=== PATIENT | female | born 1995 | race Caucasian/White ===

== ENCOUNTER 2022-02-10 03:28 | Inpatient (IN) | payer OTHER, MEDICAID, SELFPAY ==
[2022-02-10] VITALS (71 sets, daily range): BP systolic 115–145; BP diastolic 60–103; PULSE 62–245; RESP 14–17; TEMP 36.1–36.8; O2SAT 80–100; BMI 27.8
[2022-02-10 03:57] LABS: Basophils % 0.2 %; Eosinophils # 0.1 10^3/uL (0.0-0.8); Eosinophils % 0.5 %; Hematocrit 32.7 % (37.0-47.0); Hemoglobin 10.6 g/dL (11.5-15.3); Lymphocytes # 3.1 10^3/uL (0.8-4.8); Lymphocytes % 25.6 %; Mean Corpuscular HGB Conc 32.4 g/dL (30.0-36.0); Mean Corpuscular Hemoglobin 27.3 pg (28.0-34.0); Mean Corpuscular Volume 84.3 fl (81-99); Mean Platelet Volume 10.4 fL (7.4-10.4); Monocytes # 0.7 10^3/uL (0.2-0.9); Monocytes % 5.4 %; Neutrophils # 8.18 10^3/uL (1.8-7.7); Neutrophils % 67.9 %; Nucleated Red Blood Cells % 0 %; Platelet Count 239 10^3/cmm (130-400); Red Blood Count 3.88 10^6/uL (4.1-5.3); Red Cell Distribution Width 12.8 % (12.1-15.1)
[2022-02-10] MEDS: lactated ringers 1,000 ML 999 ML IV ×2 (04:09→04:35)
[2022-02-10 04:19] LABS: Amphetamines Screen Urine Negative (Negative); Barbiturates Screen Urine Negative (Negative); Benzodiazepines Screen Urine Negative (Negative); Cocaine Screen Urine Negative (Negative); Opiate Screen Urine Positive (Negative); PCP Screen Urine Negative (Negative); THC Screen Urine Negative (Negative)
--- NOTE | 2022-02-10 05:25 | ANES.PREANE2 ---
Pre-Anesthetic Assessment Height/Weight: Height 1.63 m Weight 73.482 kg Temp Pulse BP Pulse Ox O2 Del Method 97.0 F L 84 141/69 99 02/10/22 02:55 02/10/22 05:21 02/10/22 05:20 02/10/22 05:21 02/10/22 04:00 Preop Diagnosis: expected labor epidural Familial anesthetic complications: None Was Beta Destiney taken within 24 hours: N/A Was Clonidine taken within 24 hours: N/A Last intake: 02/09/22 @2200 Social No alcohol and No tobacco Exam alert, oriented x 3, clear to auscultation bilaterally and regular rate & rhythm Airway Submandibular: within normal limits Cervical ROM: within normal limits Mallampati: Class II History/ROS No significant history except as noted Pulmonary None reported CV/HEM Anemia None reported Hepatic None reported GI None reported Metabolic None reported Musc/skel None reported Neuropsych None reported Anesthetic Plan ASA status: 2 Anesthesia: Anesthesia Evaluation and Regional (specify below) Risk of > 500 ml blood loss (7ml/kg in children): No Medications/Allergies Home Medications Medication Instructions Recorded Confirmed Last Taken Type No Known Home Medications 02/10/22 02/10/22 Unknown History Allergies Allergy/AdvReac Type Severity Reaction Status Date / Time No Known Allergies Allergy Verified 02/10/22 04:41 Current Medications Generic Name Dose Route Start Last Admin Trade Name Freq PRN Reason Stop Dose Admin Lactated Ringer's 1,000 mls @ 999 mls/hr 02/10/22 03:30 02/10/22 04:35 Lactated Ringers IV 999 mls/hr .Q1H1M PRN Administration See label comments PFS Anesthesia Female Reproductive History : 3 Data Anesthesia : 02/10/22 03:43 Short CBC 02/10/22 Range/Units 03:43 WBC 12.0 H (4.0-10.0) 10^3/uL Hgb 10.6 L (11.5-15.3) g/dL Hct 32.7 L (37.0-47.0) % MCV 84.3 (81-99) fl Plt Count 239 (130-400) 10^3/cmm Neut % (Auto) 67.9 % Neut # (Auto) 8.18 H (1.8-7.7) 10^3/uL Cardiac Studies: No Data to Display Anesthesia Procedures Date of Procedure 02/10/22 Epidural Time Out Performed: Yes Consents Signed: Procedure Consent Consent: from patient Lumbar Level: L4-L5 Epidural position: sitting Epidural procedure: sterile prep of area, 1% lidocaine to numb the area, 18 g needle, negative for paresthesia passed, neg for paresthesia, test dose given, 1.5% xylocaine 1:200k epi, placed PCEA, no systemic response, sterile dressing applied, L.U.D. no apparent complications and 0.2% Ropiavacaine @ mls/hr (13)
[2022-02-10] MEDS: oxytocin 30 UNIT/500 ML BAG IV (10:00)
--- NOTE | 2022-02-10 11:37 | PM.OPHPUD ---
Labor & Delivery H&P Update Date of Procedure: February 10, 2022 Date H&P Performed: 02/06/22 Admission Diagnosis: in active labor Preop diagnosis: expected
--- NOTE | 2022-02-10 11:38 | P.PCNOB_ITS ---
Delivery Note: Date of delivery: February 10, 2022 Procedure: Normal spontaneous vaginal delivery Delivering Physician: Alana Lloyd MD Estimated blood loss (mL): 175 Pre-Delivery Course: Mother had routine care at [facility]. She was positive for marijuana on her urine drug screen and is positive again today. Otherwise there were no complications during the . Her infectious disease profile was negative. She was GBS negative. Delivery: This is a 26-year-old G3, now P2 at 39 weeks 5 days gestation who presented to labor and delivery in active labor. She received an epidural for pain management. She had spontaneous rupture of membranes with clear fluid. Rupture of membranes was approximately 5 hours prior to delivery. She had a normal spontaneous vaginal delivery of a viable female infant weight 3025 g, 6 pounds 11 ounces, Apgars 8 and 9 over an intact perineum. The had a nuchal cord x1 that was reduced upon delivery. The was suctioned and placed on the mother's chest. The cord was clamped and cut. The placenta was delivered grossly intact and normal to inspection. There was a first-degree perineal laceration that was sutured using 3-0 chromic. Mother and were doing well after delivery A&P Assessment and plan (1) (normal spontaneous vaginal delivery): Status: Acute Coding Level of Care Code Acute Professor Of Religious Studies for Chg Fwd Diagnoses (normal spontaneous vaginal delivery) O80
[2022-02-10] MEDS: lanolin oint 7 gm 1 APPLIC TOPICAL (12:22)
[2022-02-10] MEDS: acetaminophen 325 mg Tablet 650 MG PO (12:22)
[2022-02-10] MEDS: benzocaine-menthol 78 gm Canister 1 SPRAY TOPICAL (12:22)
[2022-02-10] MEDS: ibuprofen 800 mg tablet PO ×2 (14:24→21:54)
--- NOTE | 2022-02-10 16:32 | ANE.PACU2 ---
Inpatient post-anesthesia follow up: Airway intact: Yes Vital signs: Temperature 97.5 F Pulse Rate 85 Respiratory Rate 17 Blood Pressure 125/67 Pulse Oximetry 99 Oxygen Delivery Me thod Room Air Oxygen Flow Rate Fraction of Inspir ed Oxygen Hydration adequate: Yes Nausea and vomiting: No Pain level: 1 Mental status: Baseline Additional Comments: EMR review
[2022-02-10] MEDS: docusate sodium 100 mg Capsule PO (21:54)
[2022-02-11 03:10] VITALS: BP 113/64; PULSE 76; RESP 14; TEMP 36.7; O2SAT 98
[2022-02-11 03:19] LABS: Hemoglobin 8.9 g/dL (11.5-15.3); Mean Corpuscular HGB Conc 31.8 g/dL (30.0-36.0); Mean Corpuscular Hemoglobin 26.9 pg (28.0-34.0); Mean Corpuscular Volume 84.6 fl (81-99); Mean Platelet Volume 10.6 fL (7.4-10.4); Platelet Count 229 10^3/cmm (130-400); Red Blood Count 3.31 10^6/uL (4.1-5.3); Red Cell Distribution Width 13.1 % (12.1-15.1); White Blood Count 13.7 10^3/uL (4.0-10.0)
[2022-02-11] MEDS: acetaminophen 325 mg Tablet 650 MG PO (07:04)
[2022-02-11] MEDS: ibuprofen 800 mg tablet PO ×3 (08:44→21:51)
[2022-02-11] MEDS: docusate sodium 100 mg Capsule PO ×2 (08:44→17:58)
[2022-02-11] MEDS: prenatal vitamin Capsule 1 CAP PO (08:44)
[2022-02-11 09:51] VITALS: BP 125/59; PULSE 82
[2022-02-11 13:00] VITALS: BP 113/78; PULSE 70; RESP 16; TEMP 36.1
[2022-02-11 15:43] VITALS: BP 127/83; PULSE 78; RESP 16; TEMP 37.3
--- NOTE | 2022-02-11 17:29 | PM.PN ---
Subjective Subjective: She has been doing well, ambulating, tolerating a regular diet, has decreased vaginal bleeding Vitals/I&O/Wt Last Vital Signs Temp 99.1 F 02/11/22 15:43 Pulse 78 02/11/22 15:43 Resp 16 02/11/22 15:43 BP 127/83 02/11/22 15:43 Pulse Ox 98 02/11/22 03:10 O2 Del Method 02/11/22 03:10 Weight last 48 hrs Weight 73.482 kg Physical Exam Narrative: Alert and oriented, sitting up in bed, heart regular rate and rhythm, lungs clear to auscultation bilaterally, abdomen soft, fundus firm and U- 3, extremities have 1+ edema but no calf tenderness Urinary Catheter Management: Nguyen Latex: Cath Placed During This Visit: yes Reason for Continuing Indwelling Catheter: Other Urinary Catheter Date of Insertion: 02/10/22 Urinary Catheter Time of Insertion: 05:40 Data : 02/11/22 03:10 A&P Assessment and plan (1) (normal spontaneous vaginal delivery): Continue routine care Status: Acute Attestations Medical Necessity Statement*: Routine care Coding Level of Care Code Acute Claims Account Manager for Chg Fwd Diagnoses (normal spontaneous vaginal delivery) O80
[2022-02-11 22:02] VITALS: BP 118/72; PULSE 86; RESP 14; TEMP 36.9
[2022-02-12 04:40] VITALS: BP 122/68; PULSE 70; RESP 16; TEMP 36.7
[2022-02-12] MEDS: prenatal vitamin Capsule 1 CAP PO (09:40)
[2022-02-12] MEDS: ibuprofen 800 mg tablet PO ×2 (09:40→14:09)
[2022-02-12] MEDS: docusate sodium 100 mg Capsule PO (09:40)
[2022-02-12] MEDS: acetaminophen 325 mg Tablet 650 MG PO (09:44)
[2022-02-12 09:45] VITALS: BP 125/79; PULSE 124; RESP 18; TEMP 36.7
--- NOTE | 2022-02-12 12:44 | PM.DCS ---
Discharge Providers Date of Admission: 02/10/22 03:28 Date of Discharge: February 12, 2022 Attending Provider at Admission: Alana Lloyd MD Attending Provider at Discharge: Alana Lloyd MD Primary Care Provider: Alana Lloyd MD Diagnoses at Discharge Discharge Diagnosis (1) (normal spontaneous vaginal delivery): Status: Acute Reason for Visit Reason for Visit: contractions Hospital Course Hospital Course This is a 26-year-old G3 now P2 who had a normal spontaneous vaginal delivery of a viable female . Mother did well after delivery. She was ambulating, tolerating a regular diet, had good pain control and decreased vaginal bleeding at the time of discharge. Physical Exam Narrative: Alert and oriented, sitting up in bed, heart regular rate and rhythm, lungs clear to auscultation bilaterally, abdomen soft and nontender with fundus firm and U- 2, she does have 1+ edema but no calf tenderness Urinary Catheter Management: Nguyen Latex: Cath Placed During This Visit: yes Reason for Continuing Indwelling Catheter: Other Urinary Catheter Date of Insertion: 02/10/22 Urinary Catheter Time of Insertion: 05:40 Discharge Data Studies Completed and Pending Laboratory Results WBC 13.7 10^3/uL (4.0-10.0) H 02/11/22 03:10 RBC 3.31 10^6/uL (4.1-5.3) L 02/11/22 03:10 Hgb 8.9 g/dL (11.5-15.3) L 02/11/22 03:10 Hct 28.0 % (37.0-47.0) L 02/11/22 03:10 MCV 84.6 fl (81-99) 02/11/22 03:10 MCH 26.9 pg (28.0-34.0) L 02/11/22 03:10 MCHC 31.8 g/dL (30.0-36.0) 02/11/22 03:10 RDW 13.1 % (12.1-15.1) 02/11/22 03:10 Plt Count 229 10^3/cmm (130-400) 02/11/22 03:10 MPV 10.6 fL (7.4-10.4) H 02/11/22 03:10 Neut % (Auto) 67.9 % 02/10/22 03:43 Lymph % (Auto) 25.6 % 02/10/22 03:43 [place] % (Auto) 5.4 % 02/10/22 03:43 Eos % (Auto) 0.5 % 02/10/22 03:43 Baso % (Auto) 0.2 % 02/10/22 03:43 Neut # (Auto) 8.18 10^3/uL (1.8-7.7) H 02/10/22 03:43 Lymph # (Auto) 3.1 10^3/uL (0.8-4.8) 02/10/22 03:43 [place] # (Auto) 0.7 10^3/uL (0.2-0.9) 02/10/22 03:43 Eos # (Auto) 0.1 10^3/uL (0.0-0.8) 02/10/22 03:43 Baso # (Auto) 0.0 10^3/uL (0.0-0.1) 02/10/22 03:43 Nucleated RBC % (auto) 0 % 02/10/22 03:43 Nucleated RBCs # 0.0 /100WBC 02/10/22 03:43 Urine Opiates Screen Positive ng/mL (Negative) H 02/10/22 03:55 Ur Barbiturates Screen Negative ng/mL (Negative) 02/10/22 03:55 Ur Phencyclidine Scrn Negative ng/mL (Negative) 02/10/22 03:55 Ur Amphetamines Screen Negative ng/mL (Negative) 02/10/22 03:55 U Benzodiazepines Scrn Negative ng/mL (Negative) 02/10/22 03:55 Urine Cocaine Screen Negative ng/mL (Negative) 02/10/22 03:55 U Marijuana (THC) Screen Negative ng/mL (Negative) 02/10/22 03:55 Vitals Last Vital Signs Temp 98.0 F 02/12/22 09:45 Pulse 124 H 02/12/22 09:45 Resp 18 02/12/22 09:45 BP 125/79 02/12/22 09:45 Pulse Ox 98 02/11/22 03:10 O2 Del Method 02/11/22 22:02 Discharge Plan Discharge Patient Disposition: Home Condition: Stable Prescriptions: No Action No Known Home Medications Discharge Orders: Discharge Order (Routine); Ordered 02/12/22 Ordered By: Alana Lloyd Referrals: Alana Lloyd MD [Primary Care Provider] - 1 month Discharge Diet: Usual diet Discharge Activity: Limit activity as instructed Patient Instructions: Depression (DC), Bleeding (DC), Preeclampsia and Eclampsia After Delivery (GEN), OB Discharge Report, OB Food/Drug Interaction Guide, OB Care at Home, Opioid Safety, OB Vaginal Deliveries Discharge Attestations Time Spent in Discharge Care*: less than 30 min Quality Metrics Clinical Quality Measures [ No reported AMI, CVA or VTE this stay] Coding Level of Care Code Acute Chg FW DC note Diagnoses (normal spontaneous vaginal delivery) O80
[2022-02-12 14:30] VITALS: BP 119/78; PULSE 122; RESP 16; TEMP 36.9; O2SAT 99
[2022-02-12 14:40] VITALS: BP 119/78; PULSE 122; RESP 16; TEMP 36.9; O2SAT 99
== END 2022-02-12 14:45 | disposition home or self-care (01) | DRG 806 ==
LOC: OBGYN 11:03 → OPOB 02-11 08:29 → OBGYN 02-11 08:29
PROVIDERS: Admitting Provider Family Medicine; Family Provider Family Medicine; PCP Family Medicine; Visit Provider Family Medicine
DX: O69.81X0 Labor and delivery complicated by cord around neck, without compression, not applicable or unspecified (principal); O99.324 Drug use complicating childbirth; Z37.0 Single live birth; F12.90 Cannabis use, unspecified, uncomplicated; O70.0 First degree perineal laceration during delivery; Z3A.39 39 weeks gestation of pregnancy
CPT/HCPCS: 36415; 51702; 59409; 80306; 85025; 85027; 99211; J2795

== ENCOUNTER 2023-02-06 13:02 | Outpatient (CLI) | payer OTHER, MEDICAID, SELFPAY | END 2023-02-06 13:03 | disposition home or self-care (01) | PROVIDERS: Family Provider Family Medicine; PCP Family Medicine; Visit Provider Family Medicine | DX: O20.0 Threatened abortion (principal); Z3A.00 Weeks of gestation of pregnancy not specified | CPT/HCPCS: 84702 ==